=== PATIENT | male | born 1990 | race African-American/Black ===

== ENCOUNTER 2024-07-24 04:41 | Emergency (ER) | payer MEDICAID ==
[~2024-07-24] VITALS: Ht 177.8 cm; Wt 68.0 kg
[2024-07-24 05:03] VITALS: BP 124/97; PULSE 80; RESP 18; TEMP 98.5; O2SAT 100
[2024-07-24] MEDS ORDERED: IBUP-2029 MT (05:37)
[2024-07-24] MEDS ORDERED: IBUPROFEN 600MG TABLET PO STA (05:38)
== END 2024-07-24 06:05 | disposition home or self-care (01) ==
LOC: ER 04:49
DX: M79.602 Pain in left arm (principal); Z48.01 Encounter for change or removal of surgical wound dressing
CPT/HCPCS: 99282

== ENCOUNTER 2024-07-26 04:02 | Emergency (ER) | payer MEDICAID ==
[~2024-07-26] VITALS: Ht 177.8 cm; Wt 72.7 kg
[~2024-07-26 04:02] MED LIST: IBUP-2029 MT
[2024-07-26 04:07] VITALS: O2SAT 100
[2024-07-26 04:23] VITALS: BP 129/84; PULSE 83; RESP 18; TEMP 98.3; O2SAT 100
[2024-07-26 05:01] LABS: BASOPHILS % 0.2 % (0.0-2.0); HEMATOCRIT. 34.8 % (42.0-52.0); HEMOGLOBIN. 11.8 g/dL (14.0-18.0); LYMPHOCYTES % 13.9 % (20.0-50.0); MEAN CORPUSCULAR HEMOGLOBIN 27.7 pg (28.0-32.0); MEAN CORPUSCULAR HGB CONC 33.9 g/dL (31.0-37.0); MEAN CORPUSCULAR VOLUME 81.8 fL (80.0-94.0); MEAN PLATELET VOLUME 8.2 fl (7.4-10.4); MONOCYTES % 7.6 % (2.0-8.0); NEUTROPHILS % 77.3 % (40.0-76.0); PLATELET 303 x1000/uL (130-400); RED BLOOD CELL COUNT 4.26 mill/uL (4.7-6.1); RED CELL DISTRIBUTION WIDTH 14.3 % (11.6-14.6); WHITE BLOOD COUNT 10.8 x1000/uL (4.5-11.0)
[2024-07-26 05:25] LABS: CHLORIDE 103 mEq/L (98-107); POTASSIUM 3.8 mEq/L (3.5-5.1); SODIUM 137 mEq/L (136-145)
[2024-07-26 05:26] LABS: CARBON DIOXIDE 31 mEq/L (21-32)
[2024-07-26 05:27] LABS: CALCIUM 8.8 mg/dL (8.7-10.4)
[2024-07-26 05:31] LABS: CREATININE 0.7 mg/dL (0.6-1.3)
[2024-07-26 05:32] LABS: GLUCOSE 111 mg/dL (70-105); UREA NITROGEN BLOOD 14 mg/dL (9-23)
[2024-07-26 05:33] LABS: ALANINE AMINOTRANSFERASE 12 IU/L (10-49)
[2024-07-26 05:34] LABS: ALBUMIN 4.4 g/dL (3.2-4.8); ASPARTATE AMINOTRANSFERASE 16 IU/L (<34); BILIRUBIN DIRECT 0.1 mg/dL (<=3.0); BILIRUBIN TOTAL 0.3 mg/dL (0.1-1.0); PROTEIN TOTAL 7.1 g/dL (6.0-8.3)
== END 2024-07-26 05:43 | disposition left against medical advice (07) ==
LOC: ER 04:18
DX: R10.9 Unspecified abdominal pain (principal); Z53.21 Procedure and treatment not carried out due to patient leaving prior to being seen by health care provider
CPT/HCPCS: 36415; 80048; 80076; 85025